=== PATIENT | female | born 1955 | race Caucasian/White ===

== ENCOUNTER 2018-09-02 13:51 | Emergency (ER) | payer MEDICARE ==
[~2018-09-02] VITALS: Ht 177.8 cm; Wt 105.0 kg
[~2018-09-02 13:51] MED LIST: BENZ1TAB61 PO; CEFD300C37 PO; CHLO100T6; CHLO200T2; CIPR500T87 PO; DIVA-61; DOXE10CA PO; FLUP5TAB PO; FURO-93; GLIP-33; INSU100V13 SQ; LISI-170 PO; LISI2.5T; MAGN2400; MELA3TAB2 PO; METF500T9; OXYB5TAB7 PO; SENN-88; SIMV20TA3; SIMV40TA3 PO; SPIR25TA5
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
[2018-09-02] MEDS ORDERED: LIDOCAINE 1%, 10ML INFIL ONE (15:00)
[2018-09-02] MEDS ORDERED: ZIPRASIDONE 20 MG INJ IM ONE ×4 (15:00→16:00)
--- NOTE | 2018-09-02 15:15 | NUR ---
PT RESTING ON GURNEY. PAC TO BEDSIDE TO ASSESS. RESP EVEN AND UNLABORED.
[2018-09-02] MEDS ORDERED: LIDOCAINE-MPF 1%, 5ML ONE (15:17)
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
[2018-09-02 16:22] VITALS: BP 127/63
--- NOTE | 2018-09-02 16:22 | NUR ---
MD TO BEDSIDE TO ATTEMPT SUTURES.
[2018-09-02] MEDS ORDERED: BACITRACIN ZINC OINT 500U/GM, 0.9 GM ONE (16:42)
--- NOTE | 2018-09-02 17:03 | NUR ---
PT CALM, COOPERATIVE, RESTRAINTS DC'D. PT AMBULATORY TO BATHROOM WITH STEADY GAIT. WILL CONTINUE TO MONITOR. SITTER IN PLACE WITH EYES ON.
--- NOTE | 2018-09-02 18:51 | NUR ---
SITTER IN PLACE. REPORT TO RN AT [facility]. PT TO GO BY [facility] TO [facility].
--- NOTE | 2018-09-02 19:04 | NUR ---
PT HANDOFF REPORT TO FAUSTO JAMISON.
--- NOTE | 2018-09-02 19:05 | NUR ---
THIS RN AND YAQUELIN KC RECEIVED BS REPORT FROM YAQUELIN WONG TO ASSUME PT. CARE. PT. RESTING ON GURNEY WITH NADN. SITTER IN DOORWAY. [facility] TO TRANSPORT PT. BACK TO [facility], [place]; ETA 1900.
--- NOTE | 2018-09-02 19:27 | NUR ---
[facility] ARRIVED TO RETURN PT [facility]
== END 2018-09-02 19:30 ==
LOC: ED 19:24
DX: S01.511A Laceration without foreign body of lip, initial encounter (principal); F29 Unspecified psychosis not due to a substance or known physiological condition; X58.XXXA Exposure to other specified factors, initial encounter; Y93.89 Activity, other specified; Y92.89 Other specified places as the place of occurrence of the external cause; Y99.8 Other external cause status
CPT/HCPCS: 13152; 96372; 99285; J3486

== ENCOUNTER 2021-03-28 19:02 | Emergency (ER) | payer MEDICARE ==
[~2021-03-28] VITALS: Ht 172.7 cm; Wt 95.0 kg
[2021-03-29 08:27] VITALS: BP 141/95
== END 2021-03-29 14:10 ==
LOC: ED 19:30
DX: F25.0 Schizoaffective disorder, bipolar type (principal); F17.200 Nicotine dependence, unspecified, uncomplicated; I10 Essential (primary) hypertension; E11.9 Type 2 diabetes mellitus without complications
CPT/HCPCS: 36415; 80053; 80299; 80307; 80320; 82962; 85025; 96372; 99285; J3486